=== PATIENT | male | born 1990 | race African-American/Black ===

== ENCOUNTER 2018-02-03 08:21 | Emergency (ER) | payer SELFPAY ==
[2018-02-03 08:28] VITALS: BP 117/72
--- NOTE | 2018-02-03 08:35 | ER Document Report ---
ED General - General Chief Complaint: Finger Injury Stated Complaint: FINGER INJURY Time Seen by Provider: 02/03/18 08:34 Mode of Arrival: Ambulatory Information source: Patient TRAVEL OUTSIDE OF THE [place] IN LAST 30 DAYS: No - HPI Notes: 27-year-old male presents today with wanting his right thumbnail to be taken off. States a month ago his thumb was slammed in a door, for the last month his nail has been turning black, with growing out. Denies any pain, swelling, drainage from now. Patient has not seen a medical provider for this issue. Patient states she just did not know if he can get it completely taken off. Denies fevers, chills, chest pain,palpitations, shortness of breath, dyspnea, nausea, vomiting, diarrhea, abdominal pain, hematuria,blurred vision, double vision, loss of vision, speech changes, LH, dizziness, syncope, headaches, wheezing, ST, URI, neck pain, weakness, bowel or bladder dysfunction, saddle anesthesia, numbness or tingling in bilateral upper or lower extremities equally , muscle paralysis, weakness in bilateral upper or lower extremities equally or rash. Denies IV drug use. - Related Data Allergies/Adverse Reactions: No Known Allergies Allergy (Verified 02/03/18 08:22) Past Medical History - General Information source: Patient - Social History Smoking Status: Unknown if Ever Smoked Family History: Reviewed & Not Pertinent - Immunizations Hx Diphtheria, Pertussis, Tetanus Vaccination: Yes Review of Systems - Review of Systems Notes: REVIEW OF SYSTEMS: CONSTITUTIONAL : Denies fever, chills, or sweats. Denies recent illness. EENT: Denies eye, ear, throat, or mouth pain or symptoms. Denies nasal or sinus congestion or discharge. Denies throat, tongue, or mouth swelling or difficulty swallowing. CARDIOVASCULAR: Denies chest pain. Denies palpitations or racing or irregular heart beat. Denies ankle edema. RESPIRATORY: Denies cough, cold, or chest congestion. Denies shortness of breath, difficulty breathing, or wheezing. GASTROINTESTINAL: Denies abdominal pain or distention. Denies nausea, vomiting , or diarrhea. Denies blood in vomitus, stools, or per rectum. Denies black, tarry stools. Denies constipation. GENITOURINARY: Denies difficulty urinating, painful urination, burning, frequency, blood in urine, or discharge. MUSCULOSKELETAL: right thumbnail discoloration. Denies back or neck pain or stiffness. Denies joint pain or swelling. SKIN: Denies rash, lesions or sores. HEMATOLOGIC : Denies easy bruising or bleeding. LYMPHATIC: Denies swollen, enlarged glands. NEUROLOGICAL: Denies confusion or altered mental status. Denies passing out or loss of consciousness. Denies dizziness or lightheadedness. Denies headache. Denies weakness or paralysis or loss of use of either side. Denies problems with gait or speech. Denies sensory loss, numbness, or tingling. Denies seizures. PSYCHIATRIC: Denies anxiety or stress. Denies depression, suicidal ideation, or homicidal ideation. ALL OTHER SYSTEMS REVIEWED AND NEGATIVE. Dictation was performed using [employer] recognition software PHYSICAL EXAMINATION: GENERAL: Well-appearing, well-nourished and in no acute distress. HEAD: Atraumatic, normocephalic. EYES: Pupils equal round and reactive to light, extraocular movements intact, sclera anicteric, conjunctiva are normal. ENT: Nares patent, oropharynx clear without exudates. Moist mucous membranes. NECK: Normal range of motion, supple without lymphadenopathy LUNGS: Breath sounds clear to auscultation bilaterally and equal. No wheezes rales or rhonchi. HEART: Regular rate and rhythm without murmurs ABDOMEN: Soft, nontender, nondistended abdomen. No guarding, no rebound. No masses appreciated. Musculoskeletal: Normal range of motion, no pitting or edema. No cyanosis. right thumbnail with old partial avulsion and with a black discoloration that is growing out. 1/3 of the nail to the medial aspect of nail that is adhered to cuticle that appears healthy. Skin surrounding right thumbnail is healthy, cap refill less than 3 seconds. Echo appears healthy as well. skin is Warm to touch. 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 radial pulses + 2 BUE equally. Full motor and sensory function in bilaterally hands and fingers. Noted normal opposition, adduction, abduction, flexion and extension of all fingers on both hands. Snuffbox tenderness negative noted bilaterally. Negative kanavels sign bilaterally. Cap refill < 3 seconds normal medial, radial and ulnar nerve bilaterally and equally. No vascular compromise NEUROLOGICAL: Cranial nerves grossly intact. Normal speech, normal gait. Normal sensory, motor exams PSYCH: Normal mood, normal affect. SKIN: Warm, Dry, normal turgor, no rashes or lesions noted. Physical Exam - Vital signs Vitals: Temp Pulse Resp BP Pulse Ox 97.8 F 61 16 117/72 100 02/03/18 08:26 02/03/18 08:26 02/03/18 08:26 02/03/18 08:26 02/03/18 08:26 Course - Re-evaluation Re-evalutation: 02/03/18 09:56 Discussed with patient that he needs to let the nail grow out, removing now would increase chances of infection, increased pain and it is not the standard of care. Dr. Valdez consulted at bedside and looked at now as well. Agree with plan of care having patient grow the nail out, no other interventions are needed besides an aluminum finger splint. All questions and concerns answered by this provider. Patient given referral to hospital cleaning specialist is getting worse. Monitor for any signs of infection such as redness, swelling, warmth to touch or drainage. Patient agrees with plan of care and verbalized understanding plan of care. Patient was discharged home. - Vital Signs Vital signs: Temp Pulse Resp BP Pulse Ox 97.8 F 61 16 117/72 100 02/03/18 08:26 02/03/18 08:26 02/03/18 08:26 02/03/18 08:26 02/03/18 08:26 Discharge - Discharge Clinical Impression: Fingernail avulsion, partial Qualifiers: Encounter type: initial encounter Qualified Code(s): S61.309A - Unspecified open wound of unspecified finger with damage to nail, initial encounter Condition: Good Disposition: HOME, SELF-CARE Additional Instructions: My finger nail grow completely out. Wear finger splint as needed for any discomfort. Take [id number] ibuprofen and Tylenol for pain. Follow-up with primary care provider within 1 week. Monitor for any signs of infection such as redness, swelling, warmth to touch or drainage. Return immediately for any new or worsening symptoms. Follow up with primary care provider, call tomorrow to make followup appointment. Orthopedic Office [facility] [address] [place] [address] phone: [phone] Forms: Return to Work Referrals: SUNDEEP AVALOS DO [NO LOCAL MD] - Follow up in 3-5 days DASHA GONZALEZ MD [ACTIVE STAFF] - Follow up as needed
== END 2018-02-03 09:35 | disposition home or self-care (01) ==
LOC: ER 08:21
DX: S61.101A Unspecified open wound of right thumb with damage to nail, initial encounter (principal); W23.0XXA Caught, crushed, jammed, or pinched between moving objects, initial encounter
CPT/HCPCS: 99283